=== PATIENT | male | born 1955 | race Caucasian/White ===

== ENCOUNTER 2016-05-19 00:34 | Emergency (ER) | payer OTHER ==
[~2016-05-19] VITALS: Ht 182.9 cm; Wt 84.8 kg
[~2016-05-19 00:34] MED LIST: ASPIR-TRIN325 MG PO; BENICAR20 MG PO
[2016-05-19] MEDS ORDERED: BENICAR HCT 401 EAC1 PO (00:50)
[2016-05-19] MEDS ORDERED: MELOXICAM15 M1 PO (00:50)
[2016-05-19 00:52] VITALS: BP 146/95
--- NOTE | 2016-05-19 01:29 | ED GENERAL ADULT ---
History of Present Illness General Chief Complaint: General Adult Stated Complaint: THROAT PAIN, ? FB Source: patient, family Exam Limitations: no limitations Vital Signs & Intake/Output Vital Signs & Intake/Output Vital Signs Date Time Temp Pulse Resp B/P Pulse O2 O2 Flow FiO2 Ox Delivery Rate 05/19 0053 Room Air 05/19 0052 96.9 83 18 146/95 97 Room Air Allergies Coded Allergies: Penicillins (Intermediate, HIVES 05/19/16) Reconcile Medications Meloxicam 15 MG TABLET 1 TAB PO DAILY JOINT SWELLING (Reported) Olmesartan/Hydrochlorothiazide (Benicar Hct 40-25 MG Tablet) 40 MG-25 MG TABLET 1 TAB PO DAILY HTN (Reported) Triage Note: TRIAGE: PATIENT TO ER FROM HOME REPORTING X 3 HOURS "FEEL LIKE SOMETHING STUCK IN THROAT." REPORTS LAST PO INTAKE PORK CHOPS/ POTATOES/ CORN/ ICE CREAM APPROX [phone]. DENIES ANY PAIN. SPEECH CLEAR, NO ACUTE RESP DISTRESS NOTED. O2:96%RA. Triage Nurses Notes Reviewed? yes HPI: Patient was going to sleep when he noticed a tickle in the left side of his throat. The testicle when away but then he noticed a pressure sensation. There is no difficulty breathing. There is no difficulty swallowing. The pressure sensation facilities, but he wanted to make sure everything was okay. Patient was brought in by his . Patient denies any pain. Patient does admit to drinking alcohol on a regular basis and this evening he ate the cocaine. Patient has also been abusing Percocet. Patient is looking for rehabilitation facilities to go to. Patient denies any suicidal or homicidal ideations. Past History Travel History Traveled to [place] past 21 day No Medical History Any Pertinent Medical History? none Neurological: NONE EENT: NONE Cardiovascular: NONE Respiratory: NONE Gastrointestinal: NONE Hepatic: NONE Renal: NONE Musculoskeletal: NONE Psychiatric: NONE Endocrine: NONE Blood Disorders: NONE Cancer(s): NONE SUPERVISOR ROAD ADMINISTRATOR/Reproductive: NONE Surgical History Surgical History: non-contributory Psychosocial History Who do you live with Patient/Self What is your primary language Swedish Tobacco Use: Never used ETOH Use: alcoholic Illicit Drug Use: cocaine, PERCOCET Family History Hx Contributory? No Review of Systems Review of Systems Constitutional: Reports: no symptoms. EENTM: Reports: see HPI, throat pain. Respiratory: Reports: no symptoms. Cardiovascular: Reports: no symptoms. GI: Reports: no symptoms. Genitourinary: Reports: no symptoms. Musculoskeletal: Reports: no symptoms. Skin: Reports: no symptoms. Neurological/Psychological: Reports: no symptoms. Hematologic/Endocrine: Reports: no symptoms. Immunologic/Allergic: Reports: no symptoms. All Other Systems: Reviewed and Negative Physical Exam Physical Exam General Appearance: well developed/nourished, alert, awake Head: atraumatic Eyes: Bilateral: PERRL, EOMI. Ears, Nose, Throat: normal pharynx, normal ENT inspection, hearing grossly normal, nasal congestion Neck: normal inspection, supple, full range of motion Respiratory: normal breath sounds, chest non-tender, no respiratory distress, lungs clear Cardiovascular: regular rate/rhythm, normal peripheral pulses Gastrointestinal: normal bowel sounds, soft, non-tender, no organomegaly Back: normal inspection, normal range of motion Extremities: normal inspection, normal capillary refill, normal range of motion, no edema Neurologic/Psych: no motor/sensory deficits, awake, alert, oriented x 3, normal gait, normal mood/affect Skin: intact, normal color, warm/dry Lymphatic: no anterior cervical fiordaliza Core Measures ACS in differential dx? No CVA/TIA Diagnosis: No Severe Sepsis Present: No Septic Shock Present: No Progress Differential Diagnoses I considered the following diagnoses in my evaluation of the patient: [Postnasal drip, drug intoxication] Plan of Care: Patient advised that he really should seek detox and rehabilitation. Questions have been answered. Initial ED EKG: none Departure Departure Disposition: HOME OR SELF CARE Condition: Stable Clinical Impression Primary Impression: Post-nasal drip Referrals: ADITYA YO,PALMIRA Lozano (PCP/Family) Additional Instructions: FOLLOW UP WITH DETOX/REHAB RETURN FOR ANY CONCNERS Departure Forms: Customer Survey General Discharge Information Critical Care Note Critical Care Note Critical Care Time: non-applicable
== END 2016-05-19 01:34 ==
LOC: ERH 00:34
DX: R09.82 Postnasal drip (principal)
CPT/HCPCS: 99282